=== PATIENT | male | born 1950 | race Caucasian/White ===

== ENCOUNTER 2019-12-04 22:40 | Emergency (ER) | payer MEDICARE ==
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
[2019-12-05 03:18] VITALS: BP 132/78
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
== END 2019-12-05 03:17 | disposition home or self-care (01) ==
LOC: ER 22:40
DX: S00.83XA Contusion of other part of head, initial encounter (principal); S09.90XA Unspecified injury of head, initial encounter; R51 Headache; Y09 Assault by unspecified means; I10 Essential (primary) hypertension
CPT/HCPCS: 70450; 72125; 99284